=== PATIENT | female | born 1975 | race Caucasian/White ===

== ENCOUNTER 2021-09-04 05:04 | Emergency (ER) | payer OTHER ==
[~2021-09-04] VITALS: Ht 160 cm; Wt 77.1 kg
[2021-09-04 05:05] VITALS: BP 151/8
[2021-09-04] MEDS ORDERED: methylPREDNISolone SOD SUCC 125 MG/2 ML VL IV ONE (07:15)
[2021-09-04] MEDS ORDERED: METH4PAK PO (07:35)
[2021-09-04] MEDS ORDERED: IPRATROPIUM BROM 0.5 MG/2.5ML INH SOL NEB ONE (07:45)
[2021-09-04] MEDS ORDERED: ALBUTEROL SULF 2.5 MG/0.5ML(0.5%) NEB SOLN NEB ONE (07:45)
== END 2021-09-04 08:59 | disposition home or self-care (01) ==
LOC: EDBD 05:04 → ER 05:04
DX: J44.1 Chronic obstructive pulmonary disease with (acute) exacerbation (principal); Z87.891 Personal history of nicotine dependence
CPT/HCPCS: 71045; 96374; 99283; J2930